=== PATIENT | male | born 2000 | race Hispanic/Latino ===

== ENCOUNTER 2021-04-05 16:50 | Emergency (ER) | payer SELFPAY ==
[2021-04-05] MEDS ORDERED: Lidocaine 1% (PF) 30 ML VIAL ONE (18:50)
== END 2021-04-05 20:12 | disposition home or self-care (01) ==
LOC: ERS 16:50
DX: S61.511A Laceration without foreign body of right wrist, initial encounter (principal); W25.XXXA Contact with sharp glass, initial encounter; Z79.899 Other long term (current) drug therapy; G40.909 Epilepsy, unspecified, not intractable, without status epilepticus
CPT/HCPCS: 12002; J2001